=== PATIENT | female | born 1965 | race Caucasian/White ===

== ENCOUNTER 2022-11-20 03:18 | Inpatient (IN) | payer MEDICARE ==
[~2022-11-20] VITALS: Ht 177.8 cm; Wt 120.6 kg
[2022-11-20] VITALS (31 sets, daily range): BP systolic 105–172; BP diastolic 69–101
[~2022-11-20 03:18] MED LIST: DULO30; LEVOTHYROXINE137 M11 PO; METPHE20CR PO; OMEP20ER; OXYC10ER; TIZA4; TRAM50 PO; TRAZ100
[2022-11-20 03:47] LABS: BASOPHILS ABSOLUTE AUTO 0.08 K/mm3 (0.00-0.23); BASOPHILS PERCENT AUTO 0 % (0-2); EOSINOPHILS ABSOLUTE AUTO 0.13 K/mm3 (0.00-0.68); EOSINOPHILS PERCENT AUTO 1 % (0-6); Hematocrit 39.5 % (33.0-51.0); Hemoglobin 12.6 g/dL (11.5-16.0); IMMATURE GRAN ABSOLUTE AUTO 0.14 K/mm3 (0.00-0.10); IMMATURE GRAN PERCENT AUTO 1 % (0-1); LYMPHOCYTES ABSOLUTE AUTO 0.88 K/mm3 (0.84-5.20); LYMPHOCYTES PERCENT AUTO 4 % (21-46); MONOCYTES ABSOLUTE AUTO 1.17 K/mm3 (0.16-1.47); MONOCYTES PERCENT AUTO 5 % (4-13); Mean Corpuscular HGB Conc 31.9 g/dL (31.5-36.5); Mean Corpuscular Volume 85 fL (80-100); Mean Platelet Volume 9.4 fL (9.1-12.4); NEUTROPHILS PERCENT AUTO 90 % (41-73); Platelet Count 327 K/mm3 (150-400); RDW Coefficient Variation 14.5 % (11.7-14.2); RDW Standard Deviation 44.7 fL (35.1-46.3); Red Blood Cell Count 4.67 M/mm3 (3.80-5.20)
[2022-11-20 03:58] LABS: Source, Urine Foley catheter
[2022-11-20 04:00] LABS: Bilirubin, Urine Neg (Neg); Blood, Urine Neg (Neg); Glucose Qualitative, Urine 4+ (Neg); Ketones, Urine Neg (Neg); Leukocyte Esterase, Urine Neg (Neg); Nitrite, Urine Neg (Neg); Protein, Urine 2+ (Neg); Urobilinogen, Urine NORM (Normal)
[2022-11-20 04:07] LABS: International Normalized Ratio 0.98; Prothrombin Time Results 10.3 Sec (9.7-11.5)
[2022-11-20 04:15] LABS: PCO2 Arterial 63.1 mmHg (35-45); PO2 Arterial 61.5 mmHg (80-100)
[2022-11-20 04:16] LABS: pH Blood Arterial 7.22 (7.35-7.45)
[2022-11-20 04:59] LABS: Influenza A, PCR NEGATIVE (NEGATIVE); Influenza B, PCR NEGATIVE (NEGATIVE); Resp Syncytial Virus, PCR NEGATIVE (NEGATIVE); SARS-Cov-2 (COVID-19) PCR, MMC NEGATIVE (NEGATIVE)
[2022-11-20 05:40] LABS: Appearance, Urine Clear (Clear); Color, Urine Yellow (P-Yellow)
[2022-11-20 05:41] LABS: Red Blood Cells, Urine 0-2 /hpf (0-2); White Blood Cells, Urine 0-2 /hpf (0-5)
[2022-11-20 05:42] LABS: Bacteria Few /hpf; Squamous Epithelial Cells Few /hpf (Few)
[2022-11-20 06:36] LABS: Magnesium, Blood 2.3 mg/dL (1.6-2.4)
[2022-11-20 06:37] LABS: Albumin, Blood 2.7 g/dL (3.4-5.0); Albumin/Globulin Ratio 0.8 (0.8-1.8); Bilirubin, Total 0.4 mg/dL (0.1-1.0); Bun/Creatinine Ratio 29.4 (12.0-20.0); Calcium, Blood 8.4 mg/dL (8.5-10.1); Creatinine, Blood 0.85 mg/dL (0.40-1.00); Globulin, Blood 3.4 g/dL (2.2-4.0); Potassium, Blood 5.3 mmol/L (3.5-5.5); Total Protein, Blood 6.1 g/dL (6.4-8.2)
--- NOTE | 2022-11-20 07:40 | NUR ---
ARRIVAL TO ICU PT BROUGHT TO ICU 13 AT THIS TIME. SHE IS RECEIVING PROPOFOL 20MCG/KG/MIN. SHE IS INTUBATED WITH VENT SETTINGS AC/PC 18/8/50%. PT OPENS EYES SPONTANEOUSLY, ANSWERS QUESTIONS BY NODIDNG/SHAKING HEAD AND FOLLOWS SIMPLE COMMANDS. SINUS TACH ON MONITOR WITH RATE 100S-120S. SBP 120S-140S. OGT TO LIS. ABDOMEN SOFT, BOWEL TONES HYPOACTIVE. TEMP FORBES PATENT AND DRAINING PALE YELLOW URINE TO GRAVITY. SEE SHIFT ASSESSMENT.
[2022-11-20 11:25] LABS: U Buprenorphine Screen DETECTED
[2022-11-20 11:26] LABS: U Amphetamine Screen Not Detected; U Barbituate Screen Not Detected; U Benzodiazapine Screen Not Detected; U Cannabinoids Screen Not Detected; U Cocaine Screen Not Detected; U Methadone Screen Not Detected; U Methamphetamine Screen Not Detected; U Opiates Screen Not Detected; U Oxycodone Screen Not Detected; U Phencyclidine Screen Not Detected; U Propoxyphene Screen Not Detected
--- NOTE | 2022-11-20 12:22 | NUR ---
EXTUBATION PT EXTUBATED AT 1207 AND TOLERATED WELL. SHE IS NOW ON 4L NC.
[2022-11-20 17:28] LABS: Glucose, Blood 541 mg/dL (70-99)
--- NOTE | 2022-11-20 18:01 | NUR ---
SHIFT SUMMARY ASSUMED CARE AT 1530. PT EXTUBATED THIS SHIFT. CURRENTLY ON 4L VIA NC. O2 SATS >93%. EXP WHEEZES THROUGHOUT, NON PRODUCTIVE COUGH. ST ON MONITOR, RATE 120'S. BP STABLE. PT ANXIOUS, TEARFUL. DR ZEPEDA NOTIFIED. ONE TIME DOSE OF CLONAZEPAM ORDERED. PT ALSO CONCERNED ABOUT AMBIEN AT [facility]. WILL RELAY TO CONTACT [facility] PROVIDER IF PT UNABLE TO SLEEP. PT TOLERATING MEALS WELL. CBG HIGH, DR PARIS NOTIFIED. SHORT ACTING CHANGED AND ONE TIME DOSE GIVEN. FORBES REMOVED. STANDBY ASSIST TO KURT. WILL CONTINUE TO MONITOR UNTIL REPORT TO ONCOMING NURSE.
[2022-11-20 20:09] LABS: Glucose, Blood 704 mg/dL (70-99)
[2022-11-20 21:07] LABS: Bun/Creatinine Ratio 26.4 (12.0-20.0); Calcium, Blood 8.6 mg/dL (8.5-10.1); Creatinine, Blood 0.79 mg/dL (0.40-1.00); Potassium, Blood 4.4 mmol/L (3.5-5.5)
--- NOTE | 2022-11-20 22:10 | NUR ---
ASSUMED CARE ASSUMED CARE AT 1900. PT A/O X 4. ANXIOUS BUT COOPERATIVE WITH CARE. FORGETFUL AND REQUIRES FREQUENT EDUCATION. PT ATTEMPTING TO GET OOB W/O CALLING. BED ALARM IN PLACE. PT ALSO PULLED IV, AND TELE PATCHES WHEN ATTEMPTING TO PULL OFF GOWN W/O CALLING FOR ASSISTANCE. VSS. ST RATE 110'S. CBG 704 THIS PM. CALL TO HOSP, ORDER RECEIVED FOR 8U REG INSULIN IV AND TO HOLD SS INSULIN. WILL RECHECK GLUCOSE LEVEL ONE HOUR AFTER ADMINISTRATION OF INSULIN. CALLED FOR UPDATE AND EDUCATED ON POC. CALL LIGHT IN REACH.
[2022-11-20 23:16] LABS: Glucose, Blood 579 mg/dL (70-99)
[2022-11-21] VITALS (14 sets, daily range): BP systolic 109–161; BP diastolic 49–108
[2022-11-21 04:00] LABS: BASOPHILS ABSOLUTE AUTO 0.03 K/mm3 (0.00-0.23); BASOPHILS PERCENT AUTO 0 % (0-2); EOSINOPHILS PERCENT AUTO 0 % (0-6); Hematocrit 32.2 % (33.0-51.0); Hemoglobin 10.6 g/dL (11.5-16.0); IMMATURE GRAN ABSOLUTE AUTO 0.21 K/mm3 (0.00-0.10); IMMATURE GRAN PERCENT AUTO 1 % (0-1); LYMPHOCYTES ABSOLUTE AUTO 1.22 K/mm3 (0.84-5.20); LYMPHOCYTES PERCENT AUTO 6 % (21-46); MONOCYTES ABSOLUTE AUTO 0.66 K/mm3 (0.16-1.47); MONOCYTES PERCENT AUTO 3 % (4-13); Mean Corpuscular HGB 26.8 pg (26.0-34.0); Mean Corpuscular HGB Conc 32.9 g/dL (31.5-36.5); Mean Corpuscular Volume 82 fL (80-100); Mean Platelet Volume 9.7 fL (9.1-12.4); NEUTROPHILS ABSOLUTE AUTO 18.77 K/mm3 (1.96-9.15); NEUTROPHILS PERCENT AUTO 90 % (41-73); Platelet Count 297 K/mm3 (150-400); RDW Coefficient Variation 14.6 % (11.7-14.2); RDW Standard Deviation 43.3 fL (35.1-46.3); Red Blood Cell Count 3.95 M/mm3 (3.80-5.20); White Blood Cell Count 20.89 K/mm3 (4.00-11.30)
[2022-11-21 04:18] LABS: Albumin, Blood 2.7 g/dL (3.4-5.0); Albumin/Globulin Ratio 0.7 (0.8-1.8); Bilirubin, Total 0.2 mg/dL (0.1-1.0); Bun/Creatinine Ratio 38.9 (12.0-20.0); Calcium, Blood 8.7 mg/dL (8.5-10.1); Creatinine, Blood 0.59 mg/dL (0.40-1.00); Globulin, Blood 3.9 g/dL (2.2-4.0); Magnesium, Blood 2.2 mg/dL (1.6-2.4); Potassium, Blood 4.1 mmol/L (3.5-5.5); Total Protein, Blood 6.6 g/dL (6.4-8.2)
[2022-11-21 05:34] LABS: PCO2 Arterial 45.4 mmHg (35-45); PO2 Arterial 56.8 mmHg (80-100); pH Blood Arterial 7.36 (7.35-7.45)
--- NOTE | 2022-11-21 05:46 | NUR ---
SHIFT SUMMARY NO ACUTE EVENTS T/O NIGHT. MULTIPLE CALLS TO HOSP REGARDING PT CBG LEVEL AND ORDERS RECEIVED. SEE EMAR. CBG THIS AM 435. CALL TO HOSP AND NO NEW ORDERS RECEIVED. PT REQUESTING FOOD T/O AND EDUCATED ON THE NEED TO DECREASE CBG LEVEL PRIOR TO INTAKE. PT AGREEABLE AND VERBALIZED UNDERSTANDING. VSS. ON 2L WHEN ASLEEP D/T SPO2 AT 88%. RA WHEN AWAKE. ST RATE 100-120'S. PT ONE ASSIST TO BR. ONE BM THIS SHIFT. CALL LIGHT IN REACH. WILL REPORT OFF TO DAY RN.
--- NOTE | 2022-11-21 07:00 | NUR ---
ASSUMPTION OF CARE PT IS ALERT AND ORIENTED, PARTICIPATES IN CONVERSATION AND CARE. SHE REPORTS FEELING WELL TODAY AND WOULD LIKE TO GO HOME. ONLY COMPLAINT IS OCCASIONAL COUGH AND MILD THROAT DISCOMFORT. MEDICATED PER EMAR. SHE IS ON RA WITH SPO2 >93%. ABDOMEN SOFT, BOWEL TONES ACTIVE. 1 SMALL BM THIS AM. VOIDED 300ML YELLOW URINE. PT IS STANDBY ASSIST. BED IN LOW POSITION, CALL LIGHT WITHIN REACH. SEE SHIFT ASSESSMENT.
[2022-11-21] MEDS ORDERED: SUBOXONE 8 MG-1 EACH SL (09:50)
[2022-11-21] MEDS ORDERED: ZOLP10 PO (09:51)
[2022-11-21] MEDS ORDERED: VICTOZA 3-0.6 MG/0.2 SC (09:53)
[2022-11-21] MEDS ORDERED: TIZA4 PO (09:55)
[2022-11-21] MEDS ORDERED: PRAZ5 PO (09:57)
[2022-11-21] MEDS ORDERED: TIZANIDINE HCL2 M1 PO (09:59)
[2022-11-21] MEDS ORDERED: ATOR10 PO (10:04)
[2022-11-21] MEDS ORDERED: CLON1 PO (10:05)
[2022-11-21] MEDS ORDERED: DESV50 PO (10:06)
[2022-11-21] MEDS ORDERED: PRAM.125 PO (10:07)
[2022-11-21] MEDS ORDERED: LISI5 PO (10:08)
[2022-11-21] MEDS ORDERED: PROP10 (10:08)
[2022-11-21] MEDS ORDERED: PERP8 PO (10:10)
[2022-11-21] MEDS ORDERED: GABA300 (10:11)
[2022-11-21] MEDS ORDERED: LEVOTHYROXINE137 M11 PO (10:13)
[2022-11-21] MEDS ORDERED: INSULANPEN SC (14:48)
[2022-11-21] MEDS ORDERED: HUMULIN R100 UNIT/2 (14:50)
[2022-11-21] MEDS ORDERED: LACT PO (14:51)
[2022-11-21] MEDS ORDERED: AMOX-CLAV 875-1 EAC5 PO (14:51)
--- NOTE | 2022-11-21 15:18 | NUR ---
DISCHARGE PT REMAINS ALERT AND ORIENTED, EAGER TO GO HOME. ONLY COMPLAINT IS OCCASIONAL COUGH AND MILD THROAT DISCOMFORT. SHE DENIES SOB. RA WITH SPO2 >93%. LUNGS ARE CLEAR, DIMINISHED IN BASES. SINUS-SINUS TACH ON MONITOR. BP STABLE. BOWEL TONES ACTIVE, ABDOMEN SOFT. NO DIFFICULTY URINATING. PT AMBULATES WITH STEADY GAIT IN ROOM. NEW PRESCRIPTIONS [place] [facility] [place] PT REQUEST. PT'S STS HE IS GOING TO CHECK PRICES AND MAY NEED PRESCRIPTIONS SENT TO [facility]. DISCHARGE PAPERWORK AND EDUCATION PROVIDED TO PT AND PT SPOUSE. ALL QUESTIONS ANSWERED. PT'S CLOTHING WAS CUT AND DISCARDED IN ER. BELONGINGS INCLUDE DENTURES AND SILVER RING WITH PALE BLUE/WHITE GEM. PT ESCORTED OUT OF DEPARTMENT WITH BELONGINGS VIA WHEELCHAIR AND ASSISTED INTO CAR AT 1510.
== END 2022-11-21 15:15 | disposition home or self-care (01) | DRG 208 ==
LOC: ER 03:18 → ICUE 05:09
PROVIDERS: Family Medicine; Internal Medicine; Nurse Practitioner Acute Care; Student in an Organized Health Care Education/Training Program; ADMIT Student in an Organized Health Care Education/Training Program
PROC: 0BH17EZ Insertion of Endotracheal Airway into Trachea, Via Natural or Artificial Opening (ICD-10-PCS; principal; 2022-11-20)
PROC: 5A1935Z Respiratory Ventilation, Less than 24 Consecutive Hours (ICD-10-PCS; 2022-11-20)
PROC: 0T9B70Z Drainage of Bladder with Drainage Device, Via Natural or Artificial Opening (ICD-10-PCS; 2022-11-20)
PROC: 4A133R1 Monitoring of Arterial Saturation, Peripheral, Percutaneous Approach (ICD-10-PCS; 2022-11-20)
DX: J96.01 Acute respiratory failure with hypoxia (principal); J69.0 Pneumonitis due to inhalation of food and vomit; J44.1 Chronic obstructive pulmonary disease with (acute) exacerbation; E87.1 Hypo-osmolality and hyponatremia; J96.02 Acute respiratory failure with hypercapnia; Z20.822 Contact with and (suspected) exposure to COVID-19; G89.4 Chronic pain syndrome; D64.9 Anemia, unspecified; K21.9 Gastro-esophageal reflux disease without esophagitis; F31.9 Bipolar disorder, unspecified; E11.42 Type 2 diabetes mellitus with diabetic polyneuropathy; M79.7 Fibromyalgia; F17.210 Nicotine dependence, cigarettes, uncomplicated; Z90.49 Acquired absence of other specified parts of digestive tract; Z79.891 Long term (current) use of opiate analgesic; Z79.899 Other long term (current) drug therapy; Z98.84 Bariatric surgery status; Z90.710 Acquired absence of both cervix and uterus; Z87.11 Personal history of peptic ulcer disease; Z71.6 Tobacco abuse counseling
CPT/HCPCS: 0241U; 31500; 36415; 36600; 51702; 71045; 71260; 80048; 80053; 81001; 82803; 82947; 83605; 83735; 84145; 85025; 85379; 85610; 87040; 87070; 87077; 87186; 87205; 93005; 93010; 94002; 94640; 94644; 94645; 94664; 96361-59; 96365-59; 96367-59; 96368; 96375-59; 96376-59; 99291-25; A9270; C9113; J0456; J0696; J1650; J1815; J2543; J2704; J2930; J3010; J3370; J3475; J7030; J7050; J7060; J7120; Q9967